=== PATIENT | male | born 1955 | race Caucasian/White ===

== ENCOUNTER → 2020-07-27 | Outpatient (CLI) | payer OTHER, SELFPAY ==
[~2020-07-27] MED LIST: BENTYL 10MG CAP10 MG PO; CELEXA20 MG PO; COREG6.25 MG PO; CYMBALTA60 MG PO; ELAVIL 50 MG TA50 MG PO; ISOSORBIDE MON120 MG PO; K-DUR TAB 10 M10 MEQ PO; KEPPRA1000 MG PO; LASIX20 MG PO; LIPITOR80 MG PO; MIDODRINE HCL5 MG PO; NITROSTAT 0.40.4 MG SL; OMEPRAZOLE20 M2 PO; PAXIL40 MG PO; PLAVIX75 MG PO; RANEXA1000 MG PO; SEROQUEL400 MG PO; VASOTEC10 MG PO; VITAMIN D21250 MCG PO; ZETIA10 MG PO; ZOFRAN4 MG PO
== END ==
LOC: HEART 5 07:35
DX: I25.10 Atherosclerotic heart disease of native coronary artery without angina pectoris (principal); I10 Essential (primary) hypertension; R07.9 Chest pain, unspecified; R93.1 Abnormal findings on diagnostic imaging of heart and coronary circulation
CPT/HCPCS: 78452; A9502; J2785

== ENCOUNTER → 2020-07-31 | Outpatient (CLI) | payer OTHER, SELFPAY | LOC: ECHO 10:38 | DX: I25.118 Atherosclerotic heart disease of native coronary artery with other forms of angina pectoris (principal); I08.3 Combined rheumatic disorders of mitral, aortic and tricuspid valves; I27.20 Pulmonary hypertension, unspecified; R93.1 Abnormal findings on diagnostic imaging of heart and coronary circulation | CPT/HCPCS: ECHO; 93306 ==

== ENCOUNTER → 2020-08-07 | Outpatient (CLI) | payer OTHER, SELFPAY ==
[2020-08-07 13:29] LABS: HEMOGLOBIN 12.9 gm/dl (14.0-17.5); RED BLOOD COUNT 4.31 M/UL (4.20-5.50); WHITE BLOOD COUNT 7.2 K/UL (4.5-11.0)
[2020-08-07 13:49] LABS: BUN/CREATININE RATIO 12 (0-10)
== END ==
LOC: LAB 13:03
PROVIDERS: Internal Medicine Cardiovascular Disease
DX: I25.119 Atherosclerotic heart disease of native coronary artery with unspecified angina pectoris (principal); R94.39 Abnormal result of other cardiovascular function study; I10 Essential (primary) hypertension; Z98.890 Other specified postprocedural states
CPT/HCPCS: 36415; 71046; 80048; 85025

== ENCOUNTER 2020-08-09 07:18 | Outpatient (CLI) | payer OTHER, SELFPAY ==
[~2020-08-09] VITALS: Ht 175.3 cm; Wt 104.3 kg
[2020-08-09] MEDS ORDERED: LIPITOR80 MG PO (08:49)
[2020-08-09] MEDS ORDERED: BENTYL 10MG CAP10 MG PO (08:49)
[2020-08-09] MEDS ORDERED: ELAVIL 50 MG TA50 MG PO (08:52)
[2020-08-09] MEDS ORDERED: CYMBALTA60 MG PO (08:52)
[2020-08-09] MEDS ORDERED: COREG6.25 MG PO (08:52)
[2020-08-09] MEDS ORDERED: ISOSORBIDE MON120 MG PO (08:53)
[2020-08-09] MEDS ORDERED: K-DUR TAB 10 M10 MEQ PO (08:54)
[2020-08-09] MEDS ORDERED: LASIX20 MG PO (08:54)
[2020-08-09] MEDS ORDERED: KEPPRA1000 MG PO (08:55)
[2020-08-09] MEDS ORDERED: NITROSTAT 0.40.4 MG SL (08:55)
[2020-08-09] MEDS ORDERED: MIDODRINE HCL5 MG PO (08:55)
[2020-08-09] MEDS ORDERED: ZOFRAN4 MG PO (08:56)
[2020-08-09] MEDS ORDERED: OMEPRAZOLE20 M2 PO (08:56)
[2020-08-09] MEDS ORDERED: PAXIL40 MG PO (08:57)
[2020-08-09] MEDS ORDERED: RANEXA1000 MG PO (08:57)
[2020-08-09] MEDS ORDERED: PLAVIX75 MG PO (08:57)
[2020-08-09] MEDS ORDERED: SEROQUEL400 MG PO (08:58)
[2020-08-09] MEDS ORDERED: VASOTEC10 MG PO (08:58)
[2020-08-09] MEDS ORDERED: VITAMIN D21250 MCG PO (08:59)
[2020-08-09] MEDS ORDERED: ZETIA10 MG PO (08:59)
[2020-08-09] MEDS ORDERED: CELEXA20 MG PO (13:41)
[2020-08-10 02:22] LABS: HEMOGLOBIN 11.8 gm/dl (14.0-17.5); RED BLOOD COUNT 3.9 M/UL (4.20-5.50); WHITE BLOOD COUNT 6.4 K/UL (4.5-11.0)
== END 2020-08-10 12:15 | disposition home or self-care (01) ==
LOC: CATH 07:18 → PROG CARE 11:33 → CATH 08-10 12:15
PROVIDERS: Internal Medicine Interventional Cardiology
DX: I25.118 Atherosclerotic heart disease of native coronary artery with other forms of angina pectoris (principal); I25.728 Atherosclerosis of autologous artery coronary artery bypass graft(s) with other forms of angina pectoris; I25.82 Chronic total occlusion of coronary artery; T82.855A Stenosis of coronary artery stent, initial encounter; T82.857A Stenosis of other cardiac prosthetic devices, implants and grafts, initial encounter; K21.9 Gastro-esophageal reflux disease without esophagitis; I10 Essential (primary) hypertension; E78.5 Hyperlipidemia, unspecified; E03.9 Hypothyroidism, unspecified; Z98.61 Coronary angioplasty status; Z95.1 Presence of aortocoronary bypass graft; Z79.899 Other long term (current) drug therapy; Z82.49 Family history of ischemic heart disease and other diseases of the circulatory system; Y83.1 Surgical operation with implant of artificial internal device as the cause of abnormal reaction of the patient, or of later complication, without mention of misadventure at the time of the procedure
CPT/HCPCS: 36415; 80048; 85027; 85347; 93005; 99152; 99153; C1725; C1760; C1769; C1874; C1887; C9600; J0461; J1170; J1644; J2250; J3010; J7030; Q9963; Q9967

== ENCOUNTER 2020-08-14 14:26 | Emergency (ER) | payer OTHER, SELFPAY ==
[2020-08-14 16:38] LABS: HEMOGLOBIN 12.4 gm/dl (14.0-17.5); RED BLOOD COUNT 4.11 M/UL (4.20-5.50); WHITE BLOOD COUNT 7.4 K/UL (4.5-11.0)
[2020-08-14 16:58] LABS: BUN/CREATININE RATIO 12 (0-10)
== END 2020-08-14 20:27 | disposition left against medical advice (07) ==
LOC: ER1 14:26 → CDU 18:50 → ER1 20:27
PROVIDERS: Physician Assistant Medical
DX: R07.9 Chest pain, unspecified (principal); I48.91 Unspecified atrial fibrillation; I25.10 Atherosclerotic heart disease of native coronary artery without angina pectoris; Z20.822 Contact with and (suspected) exposure to COVID-19; I25.2 Old myocardial infarction; I11.0 Hypertensive heart disease with heart failure; I50.9 Heart failure, unspecified; K21.9 Gastro-esophageal reflux disease without esophagitis; J45.909 Unspecified asthma, uncomplicated; Z86.73 Personal history of transient ischemic attack (TIA), and cerebral infarction without residual deficits; Z88.1 Allergy status to other antibiotic agents; Z88.8 Allergy status to other drugs, medicaments and biological substances; Z87.891 Personal history of nicotine dependence; Z95.1 Presence of aortocoronary bypass graft
CPT/HCPCS: 71045; 80053; 82550; 82553; 83874; 83880; 84484; 85025; 85610; 93005; 93926; 99285; U0002